=== PATIENT | male | born 1990 | race African-American/Black ===

== ENCOUNTER 2019-06-04 18:27 | Day surgery (SDC) | payer OTHER ==
[2019-06-04] MEDS ORDERED: Ampicillin/Sulbactam Na 3 GM in Sodium Chloride 0.9% 100 ML IV ONE (18:38)
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
[2019-06-04] MEDS ORDERED: Sodium Chloride 0.9% 1,000 ML IV SCH (18:45)
[2019-06-04] MEDS ORDERED: Diphtheria,Pertussis(Acell),Tetanus Vaccine 0.5 ML Syringe IM ONE (18:46)
[2019-06-04] MEDS ORDERED: Midazolam 1 MG/ML 2 ML SDV ONE (19:10)
[2019-06-04] MEDS ORDERED: Propofol 200 MG/20 ML SDV ONE ×2 (19:10→20:12)
[2019-06-04] MEDS ORDERED: fentaNYL 250 MCG/5 ML SDV ONE (19:10)
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
[2019-06-04] MEDS ORDERED: Lidocaine 2% 5 ML SDV ONE (19:12)
[2019-06-04] MEDS ORDERED: Dexamethasone 4 MG/ML 5 ML MDV ONE (19:12)
[2019-06-04] MEDS ORDERED: Ondansetron 4 MG/2 ML SDV ONE (19:12)
[2019-06-04] MEDS ORDERED: Glycopyrrolate 0.2 MG/ML SDV ONE (19:12)
[2019-06-04] MEDS ORDERED: Bupivacaine 0.5% 10 ML SDV ONE (19:23)
--- NOTE | 2019-06-04 20:08 | PCM.PREANE ---
Preanesthetic Assessment - Anesthesia/Transfusion/Family Hx Anesthesia History: No Prior Anesthesia Family History of Anesthesia Reaction: No - Physical Assessment NPO Status Date: 06/04/19 NPO Status Time: 13:00 Vital Signs: Last Vital Signs Temp 36.8 C 06/04/19 18:29 Pulse 65 06/04/19 18:29 Resp 18 06/04/19 18:29 BP 147/97 H 06/04/19 18:29 Pulse Ox 98 06/04/19 18:29 Height: 1.88 m Weight: 113.398 kg - Allergies Allergies/Adverse Reactions: Allergies Allergy/AdvReac Type Severity Reaction Status Date / Time azithromycin Allergy Other Verified 06/04/19 18:31 PreAnesthesia Questionnaire - Past Health History Medical/Surgical History: Denies Medical/Surgical History HEENT History: Reports: None Cardiovascular History: Reports: None Respiratory History: Reports: None Gastrointestinal History: Reports: None Genitourinary History: Reports: None Musculoskeletal History: Reports: None Neurological History: Reports: None Psychiatric History: Reports: None Endocrine/Metabolic History: Reports: None Hematologic History: Reports: None Immunologic History: Reports: None Oncologic (Cancer) History: Reports: None Dermatologic History: Reports: None - Past Surgical History Head Surgeries/Procedures: Reports: None HEENT Surgical History: Reports: None Cardiovascular Surgical History: Reports: None Respiratory Surgical History: Reports: None GI Surgical History: Reports: None Male Surgical History: Reports: None Endocrine Surgical History: Reports: None Neurological Surgical History: Reports: None Musculoskeletal Surgical History: Reports: None Oncologic Surgical History: Reports: None Dermatological Surgical History: Reports: None - SUBSTANCE USE Smoking Status *Q: Never Smoker Second Hand Smoke Exposure: No Recreational Drug Use History: No - HOME MEDS Home Medications: Home Meds . [No Known Home Meds] 06/04/19 [History] - CURRENT (IN HOUSE) MEDS Current Meds: Current Medications Sodium Chloride (Normal Saline) 1,000 mls @ 125 mls/hr IV STAT SREEKANTH Last Admin: 06/04/19 19:00 Dose: 125 mls/hr Discontinued Medications Bupivacaine HCl (Sensorcaine-Mpf 0.5%) Confirm Administered Dose 10 ml .ROUTE .STK-MED ONE Stop: 06/04/19 19:24 Dexamethasone (Dexamethasone) Confirm Administered Dose 20 mg .ROUTE .STK-MED ONE Stop: 06/04/19 19:13 Diphtheria/Tetanus/Acell Pertussis (Adacel) 0.5 ml IM .ONCE ONE Stop: 06/04/19 18:47 Last Admin: 06/04/19 18:57 Dose: 0.5 ml Fentanyl (Sublimaze) Confirm Administered Dose 250 mcg .ROUTE .STK-MED ONE Stop: 06/04/19 19:11 Glycopyrrolate (Robinul) Confirm Administered Dose 0.2 mg .ROUTE .STK-MED ONE Stop: 06/04/19 19:13 Ampicillin Sodium/Sulbactam (Sodium 3 gm/ Sodium Chloride) 100 mls @ 200 mls/ hr IV ONETIME ONE Stop: 06/04/19 19:07 Last Admin: 06/04/19 19:16 Dose: 200 mls/hr Lidocaine (Xylocaine-Mpf 2%) Confirm Administered Dose 5 ml .ROUTE .STK-MED ONE Stop: 06/04/19 19:13 Midazolam HCl (Versed 1 Mg/Ml) Confirm Administered Dose 2 mg .ROUTE .STK-MED ONE Stop: 06/04/19 19:11 Ondansetron HCl (Zofran) Confirm Administered Dose 4 mg .ROUTE .STK-MED ONE Stop: 06/04/19 19:13 Propofol (Diprivan 20 Ml) Confirm Administered Dose 200 mg .ROUTE .STK-MED ONE Stop: 06/04/19 19:11 Succinylcholine Chloride (Succinylcholine Chloride) Confirm Administered Dose 200 mg .ROUTE .STK-MED ONE Stop: 06/04/19 19:13
[2019-06-04] MEDS ORDERED: fentaNYL 100 MCG/2 ML SDV ONE (20:13)
--- NOTE | 2019-06-04 20:49 | PCM.OPNOTE ---
- General Post-Op/Procedure Note Date of Surgery/Procedure: 06/04/19 Operative Procedure(s): Lower and upper lip laceration repair Findings: M shaped laceration of the middle upper lip measuring 1.5 x 1.5 x 1.5 cm in lengths and 1 cm in depth with a small amount of muscle involvement. There was a 2 x 2 x 2 mm full thickness mucosal laceration below this. On the lower lip there was a 1 cm in length and 5mm in depth laceration on the left lateral edge of the lip. There was a larger mucosal laceration with abraded edges along the middle portion of the lower lip. This was 2 cm in length and 5mm in depth. This had rough edges that were harder to bring together. Pre Op Diagnosis: Lip laceration, complex Post-Op Diagnosis: same Anesthesia Technique: General ET Tube Primary Surgeon: Karen Kohler Fluid Replacement, Intraop: 600 EBL in mLs: 10 Condition: Stable
--- NOTE | 2019-06-04 20:55 | PCM.POSTAN ---
POST ANESTHESIA ASSESSMENT - MENTAL STATUS Mental Status: Alert - VITAL SIGNS Vital Signs: Last Vital Signs Temp 36.8 C 06/04/19 20:38 Pulse 93 06/04/19 20:54 Resp 21 H 06/04/19 20:54 BP 147/89 H 06/04/19 20:54 Pulse Ox 95 06/04/19 20:54 - RESPIRATORY Respiratory Status: Respiratory Rate WNL - CARDIOVASCULAR CV Status: Pulse Rate WNL - GASTROINTESTINAL GI Status: No Symptoms - POST OP HYDRATION Hydration Status: Adequate & Stable
[2019-06-04] MEDS ORDERED: Acetaminophen/oxyCODONE 325-5 MG Tab PO PRN (21:04)
--- NOTE | 2019-06-04 21:26 | PCM48HPAN ---
Post Anesthesia Note - EVALUATION WITHIN 48HRS OF ANESTHETIC Vital Signs in Normal Range: Yes Patient Participated in Evaluation: Yes Respiratory Function Stable: Yes Airway Patent: Yes Cardiovascular Function Stable: Yes Hydration Status Stable: Yes Pain Control Satisfactory: Yes Nausea and Vomiting Control Satisfactory: Yes Vital Signs: Last Vital Signs Temp 36.8 C 06/04/19 20:38 Pulse 87 06/04/19 21:04 Resp 19 06/04/19 21:04 BP 140/74 06/04/19 21:04 Pulse Ox 96 06/04/19 21:04
--- NOTE | 2019-06-05 02:13 | OR ---
SURGEON: NOVA DICKERSON MD DATE OF PROCEDURE: 06/04/2019 PREOPERATIVE DIAGNOSIS: Upper and lower lip laceration, complex. POSTOPERATIVE DIAGNOSIS: Upper and lower lip laceration, complex. PROCEDURE PERFORMED: Upper and lower lip laceration repair. ANESTHESIA: General endotracheal anesthesia. FLUIDS: 600 mL crystalloid. ESTIMATED BLOOD LOSS: 10 mL. FINDINGS: M-shaped laceration of the middle upper lip measuring 1.5 x 1.5 x 1.5 cm in length and 1 cm in depth with a small amount of muscle involvement. There was a 2 x 2 x 2 mm full-thickness mucosal laceration just below this. On the lower lip, there was a 1 cm in length and 5 mm in depth laceration on the left lateral edge of the lip. There was a larger mucosal laceration with abraded edges along the middle portion of the lower lip. This was 2 cm in length and 5 mm in depth. This had rough edges and was slightly harder to bring together. COMPLICATIONS: None. 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 On evaluation in the ER, he was found to have complex lacerations. Given the complexity of these lacerations and the multiplicity, the decision was made to take him to the OR for repair under anesthesia. I visited with the patient regarding the procedure, expected perioperative course, and risks of bleeding and infection. The patient verbalized understanding and wishes to proceed. PROCEDURE IN DETAIL: The patient was brought into the operating room and placed on the OR table in supine position. A time-out was completed verifying the patient's name, age, date of , allergies, and procedure to be performed. General endotracheal anesthesia was induced. The patient's lips and lower face were cleaned with soap and water. The lips, oral cavity, and lower face were then prepped and draped in usual standard fashion. Before starting with any repairs, I assessed the oral cavity and lips. The patient had an "M" shaped laceration of the middle upper lip measuring 1.5 x 1.5 x 1.5 cm in length and 1 cm in depth with a small amount of muscle involvement. This did not go through and through the lip. There was a 2 x 2 x 2 mm full-thickness mucosal laceration on the opposite side or just below this area on the inside part of the lip. On the lower lip, there was 1 cm in length and 5 mm in depth laceration on the left lateral edge of the lip. This did not involve the mucosa. There was a larger mucosal laceration with abraded edges along the middle portion of the lower lip. This was 2 cm in length and 5 mm in depth. This had roughened edges. The decision was made to close all of the skin lacerations with interrupted 4-0 Prolene and all of the mucosal lacerations with interrupted 4-0 chromic sutures. I started on the M-shaped laceration on the upper lip. A single interrupted 3-0 Vicryl suture was placed in the muscle to bring it together. The remainder of the laceration was then closed superficially using interrupted 4-0 Prolene sutures. The small mucosal laceration just below this was closed with 1 interrupted 4-0 chromic suture. On the lower lip, I closed the left lateral laceration with 3 interrupted 4-0 Prolene sutures. The mucosal laceration was closed with interrupted 4-0 chromic sutures. Small Iris scissors were brought in to trim the edges back to clean tissue. A 1 mm x 1 mm x 1 mm piece was removed along the left lateral edge of this laceration. The wounds were then irrigated with normal saline and inspected. They appeared to be hemostatic and adequately repaired. The lips were then anesthetized with 0.5% Marcaine plain. The wounds were then covered in a thick layer of bacitracin. The patient was awoken and extubated. He was taken to PACU in stable condition. All counts were complete and correct at the end of the case. FRANCIS MUNOZ /[id number]
== END 2019-06-04 22:00 | disposition home or self-care (01) ==
LOC: MW.ED 18:27 → MW.SDS 19:05 → MW.MS 19:06 → MW.SDS 22:00
PROVIDERS: ATTEND Surgery
DX: S01.511A Laceration without foreign body of lip, initial encounter (principal); W54.0XXA Bitten by dog, initial encounter; Z88.1 Allergy status to other antibiotic agents
CPT/HCPCS: 13152; 90471; 90715; 99284; J0295; J0330; J1100; J2001; J2250; J2405; J2704; J3010; J3490; J7030; J7040; 00300

== ENCOUNTER 2019-07-20 15:31 | Emergency (ER) | payer OTHER ==
--- NOTE | 2019-07-20 16:10 | EDM.PDOC ---
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 Past medical history: As per history of present illness and as reviewed below otherwise noncontributory. Surgical history: As per history of present illness and as reviewed below otherwise noncontributory. Social history: No reported history of drug or alcohol abuse. Family history: As per history of present illness and as reviewed below otherwise noncontributory. Physical exam: HEENT: Atraumatic, normocephalic, pupils reactive, negative for conjunctival pallor or scleral icterus, mucous membranes moist, throat clear, neck supple, nontender, trachea midline. Lungs: Clear to auscultation, breath sounds equal bilaterally, chest nontender. Heart: S1S2, regular, negative for clicks, rubs, or JVD. Abdomen: Soft, nondistended, nontender. Negative for masses or hepatosplenomegaly. Negative for costovertebral tenderness. Pelvis: Stable nontender. Genitourinary: Deferred. Rectal: Deferred. Extremities: Atraumatic, negative for cords or calf pain. Neurovascular unremarkable. Neuro: Awake, alert, oriented. Cranial nerves II through XII unremarkable. Cerebellum unremarkable. Motor and sensory unremarkable throughout. Exam nonfocal. Diagnostics: [right hand 3 v ] Therapeutics: [thumb spica rest ice ibuprofen ] Impression: [closed fx , right 1st metacarpal] Definitive disposition and diagnosis as appropriate pending reevaluation and review of above. Right Wrist Pain Score (Numeric/FACES): 4 - Related Data Allergies Allergy/AdvReac Type Severity Reaction Status Date / Time azithromycin Allergy Other Verified 07/20/19 15:55 Home Meds: Home Meds . [No Known Home Meds] 07/20/19 [History] Past Medical History - Past Health History Medical/Surgical History: Denies Medical/Surgical History HEENT History: Reports: None Cardiovascular History: Reports: None Respiratory History: Reports: None Gastrointestinal History: Reports: None Genitourinary History: Reports: None Musculoskeletal History: Reports: None Neurological History: Reports: None Psychiatric History: Reports: None Endocrine/Metabolic History: Reports: None Hematologic History: Reports: None Immunologic History: Reports: None Oncologic (Cancer) History: Reports: None Dermatologic History: Reports: None - Infectious Disease History Infectious Disease History: Reports: Chicken Pox - Past Surgical History Head Surgeries/Procedures: Reports: None HEENT Surgical History: Reports: None Cardiovascular Surgical History: Reports: None Respiratory Surgical History: Reports: None GI Surgical History: Reports: None Male Surgical History: Reports: None Endocrine Surgical History: Reports: None Neurological Surgical History: Reports: None Musculoskeletal Surgical History: Reports: None Oncologic Surgical History: Reports: None Dermatological Surgical History: Reports: None Social & Family History - Family History Family Medical History: Noncontributory - Tobacco Use Smoking Status *Q: Never Smoker Second Hand Smoke Exposure: No - Caffeine Use Caffeine Use: Reports: None - Recreational Drug Use Recreational Drug Use: No Review of Systems - Review of Systems Review Of Systems: See Below ED EXAM, GENERAL - Physical Exam Exam: See Below Course - Vital Signs Last Recorded V/S: Last Vital Signs Temp 97.7 F 07/20/19 15:56 Pulse 51 L 07/20/19 15:56 Resp 16 07/20/19 15:56 BP 130/80 07/20/19 15:56 Pulse Ox 99 07/20/19 15:56 - Orders/Labs/Meds Orders: Active Orders 24 hr Category Date Time Status Wrist Comp Min 3V Rt [CR] Stat Exams 07/20/19 15:52 Taken Departure - Departure Time of Disposition: 16:09 Disposition: Home, Self-Care 01 Condition: Good Clinical Impression: Fracture of first metacarpal - Discharge Information Referrals: PCP,None [Primary Care Provider] - Additional Instructions: Thumb spica splint Rest ice ibuprofen Return if symptoms persist or worsen Follow-up with orthopedist, call phone number below to schedule appropriate follow-up [facility] [address], [address] [place] [address] my orthopedic The following information is given to patients seen in the emergency department who are being discharged to home. This information is to outline your options for follow-up care. We provide all patients seen in our emergency department with a follow-up referral. The need for follow-up, as well as the timing and circumstances, are variable depending upon the specifics of your emergency department visit. If you don't have a primary care physician on staff, we will provide you with a referral. We always advise you to contact your personal physician following an emergency department visit to inform them of the circumstance of the visit and for follow-up with them and/or the need for any referrals to a consulting specialist. The emergency department will also refer you to a specialist when appropriate. This referral assures that you have the opportunity for follow-up care with a specialist. All of these measure are taken in an effort to provide you with optimal care, which includes your follow-up. Under all circumstances we always encourage you to contact your private physician who remains a resource for coordinating your care. When calling for follow-up care, please make the office aware that this follow-up is from your recent emergency room visit. If for any reason you are refused follow-up, please contact the [facility] emergency department at and asked to speak to the emergency department charge nurse. Sepsis Event Note - Evaluation Sepsis Screening Result: No Definite Risk - Focused Exam Vital Signs: Vital Signs Temp Pulse Resp BP Pulse Ox 07/20/19 15:56 97.7 F 51 L 16 130/80 99 Date Exam was Performed: 07/20/19 Time Exam was Performed: 16:07 - My Orders Last 24 Hours: My Active Orders 07/20/19 15:52 Wrist Comp Min 3V Rt [CR] Stat - Assessment/Plan Last 24 Hours: My Active Orders 07/20/19 15:52 Wrist Comp Min 3V Rt [CR] Stat
--- NOTE | 2019-07-20 16:24 | CR ---
INDICATION: Right wrist pain. Thumb pain. Status post fall today. TECHNIQUE: Three views right wrist Findings : Mild to moderately displaced minimally comminuted acute transverse fracture involving the base of the right 1st metacarpal with overlying mild to moderate soft tissue swelling. No other acute fracture or dislocation in right hand or wrist. Moderate soft tissue swelling right hand and wrist dorsally. Remainder negative. Dictated by Bronson Schaffer MD @ Jul 20 2019 4:23PM Signed by Dr. Bronson Schaffer @ Jul 20 2019 4:23PM
== END 2019-07-20 16:38 | disposition home or self-care (01) ==
LOC: MW.ED 15:31
DX: S62.231A Other displaced fracture of base of first metacarpal bone, right hand, initial encounter for closed fracture (principal); Z88.1 Allergy status to other antibiotic agents; W01.0XXA Fall on same level from slipping, tripping and stumbling without subsequent striking against object, initial encounter
CPT/HCPCS: 29125; 73110-26-RT; 73110-RT; 99283-25

== ENCOUNTER 2019-07-25 12:43 | Day surgery (SDC) | payer OTHER ==
--- NOTE | 2019-07-25 13:38 | PCM.PREANE ---
Preanesthetic Assessment - Anesthesia/Transfusion/Family Hx Anesthesia History: Prior Anesthesia Without Reaction Family History of Anesthesia Reaction: No Transfusion History: No Prior Transfusion(s) Intubation History: Unknown - Review of Systems General: No Symptoms Pulmonary: No Symptoms Cardiovascular: No Symptoms Gastrointestinal: No Symptoms Neurological: No Symptoms Other: Reports: None - Physical Assessment Height: 6 ft 2 in Weight: 117.934 kg ASA Class: 2 Mental Status: Alert & Oriented x3 Airway Class: Mallampati = 1 Dentition: Reports: Normal Dentition Thyro-Mental Finger Breadths: 3 Mouth Opening Finger Breadths: 3 ROM/Head Extension: Full Lungs: Clear to Auscultation, Normal Respiratory Effort Cardiovascular: Regular Rate, Regular Rhythm - Allergies Allergies/Adverse Reactions: Allergies Allergy/AdvReac Type Severity Reaction Status Date / Time azithromycin Allergy Other Verified 07/24/19 16:35 - Blood Blood Available: No - Anesthesia Plan Pre-Op Medication Ordered: None - Acknowledgements Anesthesia Type Planned: General Anesthesia Pt an Appropriate Candidate for the Planned Anesthesia: Yes Alternatives and Risks of Anesthesia Discussed w Pt/Guardian: Yes Pt/Guardian Understands and Agrees with Anesthesia Plan: Yes PreAnesthesia Questionnaire - Past Health History Medical/Surgical History: Denies Medical/Surgical History HEENT History: Reports: None Cardiovascular History: Reports: None Respiratory History: Reports: None Gastrointestinal History: Reports: None Genitourinary History: Reports: None Musculoskeletal History: Reports: Fracture Other Musculoskeletal History: hx of fx arm as a child Neurological History: Reports: None Psychiatric History: Reports: None Endocrine/Metabolic History: Reports: Obesity/BMI 30+ Hematologic History: Reports: None Immunologic History: Reports: None Oncologic (Cancer) History: Reports: None Dermatologic History: Reports: None - Infectious Disease History Infectious Disease History: Reports: Chicken Pox - Past Surgical History HEENT Surgical History: Reports: Other (See Below) Other HEENT Surgeries/Procedures: repair of lip laceration under general anesthesia problems - SUBSTANCE USE Smoking Status *Q: Current Some Day Smoker Tobacco Use Within Last Twelve Months: Cigarettes Recreational Drug Use History: No - HOME MEDS Home Medications: Home Meds . [No Known Home Meds] 07/20/19 [History]
[2019-07-25] MEDS ORDERED: Lactated Ringers 1,000 ML IV SCH (14:00)
--- NOTE | 2019-07-25 18:08 | PCM.OPNOTE ---
- General Post-Op/Procedure Note Date of Surgery/Procedure: 07/25/19 Operative Procedure(s): right first metacarpal orif Pre Op Diagnosis: right first metacarpal base fracture, closed Post-Op Diagnosis: Same Anesthesia Technique: Local, MAC, Moderate Sedation Primary Surgeon: Stewart Weaver Anesthesia Provider: Jb Bergeron Community [facility] Coordinator: Kaelyn Carrion EBL in mLs: 25 Complications: None Condition: Good
[2019-07-25] MEDS ORDERED: fentaNYL 100 MCG/2 ML SDV IVPUSH PRN (18:11)
[2019-07-25] MEDS ORDERED: Bupivacaine 0.5% 30 ML SDV ONE (18:21)
[2019-07-25] MEDS ORDERED: Propofol 200 MG/20 ML SDV ONE (18:23)
[2019-07-25] MEDS ORDERED: Midazolam 1 MG/ML 2 ML SDV ONE (18:24)
[2019-07-25] MEDS ORDERED: fentaNYL 100 MCG/2 ML SDV ONE (18:24)
[2019-07-25] MEDS ORDERED: Ondansetron 4 MG/2 ML SDV ONE (18:26)
[2019-07-25] MEDS ORDERED: Glycopyrrolate 0.2 MG/ML SDV ONE (18:26)
[2019-07-25] MEDS ORDERED: Lidocaine 2% 5 ML SDV ONE (18:26)
[2019-07-25] MEDS ORDERED: Ketorolac 30 MG/ML SDV ONE (18:26)
[2019-07-25] MEDS ORDERED: ceFAZolin 1 GM Vial ONE (18:27)
[2019-07-25] MEDS ORDERED: Sodium Chloride 0.9% 20 ML ONE (18:27)
[2019-07-25] MEDS ORDERED: Phenylephrine/Normal Saline 100 MCG/ML 10 ML Syringe ONE (18:50)
--- NOTE | 2019-07-25 20:13 | PCM.POSTAN ---
POST ANESTHESIA ASSESSMENT - MENTAL STATUS Mental Status: Alert - VITAL SIGNS Vital Signs: Last Vital Signs Temp 36.9 C 07/25/19 19:51 Pulse 96 07/25/19 20:07 Resp 20 07/25/19 20:07 BP 155/101 H 07/25/19 20:07 Pulse Ox 97 07/25/19 20:07 - RESPIRATORY Respiratory Status: Respiratory Rate WNL - CARDIOVASCULAR CV Status: Pulse Rate WNL - GASTROINTESTINAL GI Status: No Symptoms
--- NOTE | 2019-07-25 22:54 | OR ---
SURGEON: Stewart Weaver DATE OF PROCEDURE: 07/25/2019 PREOPERATIVE DIAGNOSIS: Right 1st metacarpal base fracture, closed. POSTOPERATIVE DIAGNOSIS: Right 1st metacarpal base fracture, closed. PROCEDURE: 1. Open reduction and internal fixation, right 1st metacarpal base fracture. 2. Placement of short-arm splint. PRIMARY SURGEON: Stewart Weavre DO GASOLINE TRACTOR OPERATOR: Lubna Carrion first nurse assist student. ANESTHESIA: General, LMA. Jb Sandoval CRNA. FLUID: Lactated Ringer solution. ESTIMATED BLOOD LOSS: Less than 10 mL. COMPLICATIONS: None. SPECIMEN: None. DISCHARGE DISPOSITION: Stable to PACU. TOURNIQUET TIME: 42 minutes. HISTORY AND INDICATIONS FOR THE PROCEDURE: The patient was seen preoperatively in the clinic. He had fallen on ice and suffered the above-mentioned fracture, which was confirmed on radiographs. Risks and goals of the procedure explained to the patient. Informed consent was obtained. DETAILS OF PROCEDURE: The patient was seen preoperatively by me and the anesthesia staff in the preoperative holding area where the operative site was marked. He was brought to the operative suite by the anesthesia staff where general anesthesia was administered via LMA. The right upper extremity had a well-padded tourniquet placed on the arm and was prepped and draped in the usual sterile manner. A time-out was called identifying the correct patient, the correct procedure, the correct site, and that antibiotics had been given within appropriate period of time. An incision was made at the junction of the glabrous skin along the dorsal border of the 1st metacarpal. The recurrent radial nerve was identified and protected. The Metzenbaum was used for dissection down to the bone subperiosteally. I then elevated directly off the bone to avoid any damage to the soft tissue structures and then carried this down to the carpometacarpal joint. The fracture was identified. The distal portion was more radial. I freed up the edges and irrigated to remove any hematoma. I then spent a few minutes getting this reduced. I reduced it with a K-wire to hold it in position and then placed a T-plate. I then drilled a non-locker at the T proximally and then a locker distally, and then took films to confirm good position. I then drilled and filled the rest of the screw holes. I then took my final films, and it showed this to be in good position. I then irrigated. Please note that before the incision, I did block the median and recurrent radial nerve with Sensorcaine. I did then close the subcutaneous layer with 3-0 Vicryl interrupted sutures, followed by 3-0 nylon horizontal mattresses, followed by Betadine-soaked Adaptic, fluff, Webril, and then placed him into a short-arm splint. The patient was then allowed to awaken from general anesthesia and taken to the PACU in stable condition. [id number] / MODL /[id number]
== END 2019-07-25 21:45 | disposition home or self-care (01) ==
LOC: MW.SDS 12:43 → MW.MS 21:08 → MW.SDS 21:45
PROVIDERS: ATTEND Orthopaedic Surgery
DX: S62.231A Other displaced fracture of base of first metacarpal bone, right hand, initial encounter for closed fracture (principal); S01.511A Laceration without foreign body of lip, initial encounter; W00.0XXA Fall on same level due to ice and snow, initial encounter; Z87.891 Personal history of nicotine dependence
CPT/HCPCS: 26665; J0690; J1885; J2001; J2250; J2370; J2405; J2704; J3010; J3490; J7120

== ENCOUNTER 2023-08-07 15:57 | Emergency (ER) | payer OTHER ==
[2023-08-07] MEDS ORDERED: Lidocaine 1% PF 2 ML SDV INJECT ONE (17:35)
== END 2023-08-07 19:06 | disposition home or self-care (01) ==
LOC: MW.ED 15:57
DX: S91.312A Laceration without foreign body, left foot, initial encounter (principal); E66.9 Obesity, unspecified; Z68.30 Body mass index [BMI] 30.0-30.9, adult; Z88.1 Allergy status to other antibiotic agents; W26.8XXA Contact with other sharp object(s), not elsewhere classified, initial encounter
CPT/HCPCS: 12002; 99282; J3490

== ENCOUNTER 2024-08-30 13:15 | Emergency (ER) | payer OTHER | END 2024-08-30 15:48 | disposition home or self-care (01) | LOC: MW.ED 13:15 | DX: H57.89 Other specified disorders of eye and adnexa (principal); R51.9 Headache, unspecified; I10 Essential (primary) hypertension; E66.9 Obesity, unspecified; Z68.26 Body mass index [BMI] 26.0-26.9, adult; Z88.1 Allergy status to other antibiotic agents; Z79.899 Other long term (current) drug therapy; Z75.8 Other problems related to medical facilities and other health care | CPT/HCPCS: 71045; 71045-26; 87428-QW; 99284 ==